=== PATIENT | female | born 1990 ===

== ENCOUNTER 2016-05-27 19:21 | Emergency (ER) | payer MEDICAID, OTHER ==
[2016-05-27 20:43] VITALS: BMI 28.0
[2016-05-27 21:18] LABS: RBC URINE 1 /hpf (0-3); URINE BILIRUBIN NEGATIVE (NEGATIVE); URINE BLOOD NEGATIVE (NEGATIVE); URINE COLOR STRAW (YELLOW); URINE GLUCOSE (UA) NEG (Normal); URINE KETONE NEGATIVE (NEGATIVE); URINE LEUKOCYTE ESTERASE TRACE Leu/uL (Negative); URINE PROTEIN NEGATIVE (NEGATIVE); URINE UROBILINOGEN 0.2-1.0 mg/dL (0.2-1.0); WBC URINE 2 /hpf (0-5)
--- NOTE | 2016-05-27 21:39 | US ---
EXAM: US Uterus CLINICAL HISTORY: 26 years old, female; Signs and symptoms; Lmp or gestational age (in weeks): 12/23/15; Antepartum complications; Other: Pelvic pressure; ; Additional info: Pelvic pressure, pelvic pain TECHNIQUE: Real-time ultrasound of the maternal uterus (limited) with image documentation. COMPARISON: No relevant prior studies available. FINDINGS: Evaluation of the pelvis reveals a single intrauterine with a cephalic presentation. The placenta is fundal and free of the cervical os. The cervix measures 4.2 cm in length and is closed. heart rate measured at 142 bpm. measurements are as follows: BPD: 5.6 cm Head circumference: 20.9 cm Abdominal circumference: 18.0 cm Femur length: 4.3 cm Composite estimated gestational age is 23 weeks 2 days +/-1 week 4 days. Estimated weight is 579 g (1 lb 4 oz). EFW percentile is 88.7 %. Anatomy not evaluated. IMPRESSION: Single IUP as above. Cervix is closed, measured at 4.2 cm.
--- NOTE | 2016-06-01 16:08 | OBHP ---
Datetime: 05/27/2016 22:40 Pelvic Type - PN: Adequate Extremities - PN: Normal Abdomen - PN: Normal Back - PN: Normal Breast - PN: Normal Lungs - PN: Normal Heart - PN: Normal Thyroid - PN: Normal Neurologic - PN: Normal HEENT - PN: Normal General - PN: Normal Genitourinary Exam: Normal DTRs - PN: Normal Datetime: 05/27/2016 20:35 IP Adm Impression: , intrauterine ; No Active Labor IP Admit Plan: Observation/Evaluation Admit Comment, IP Provider: 26 y/o F IU at 22.2w presents due to pelvic pain with pressure and lower back pain since 4pm today. Pain is constant has not change in intensity or quality since starte d. Denies VB, LOF, CTXs, vomiting, nausea or dysuria. PMHx: denies Allegies: NKDA Meds: PNV, Iron OB Hx: 1 C-Sect, 1 NVD. UTI during current at 12weeks SxHx: L/Ovary removal O: See above A: 26 y/o F IUP at 22.2w presents for evaluation of labor P: - monitoring -UA -OB US limited Case discussed with Dr Randi Guerrero PGY1 Addendum: I saw and examined patient presentation. Patient was observed at OB ED. Urinalysis negative. Obste trical ultrasound with cervical length measurement within normal limits. Patient reports feeling bett er and no complaints at this time. Discussed results with patient. Plan to discharge patient. Patient will follow up with care as already scheduled. Randi Presentation-Admit: Vertex FHR - Baseline A Provider: [id number] Comments, ACOG Physical Exam: VE: Closed, thick, high Gestation - Est Wks by US: 22.0 EGA AdmitDate IP: 22.2 Vital Signs Provider: Reviewed; Within Normal Limits IP Chief Complaint: Maternal discomfort NICHD Accel Fetus A IP Provider: [id number] NICHD Decel Fetus A IP Provider: None Dilatation, Provider: closed
== END 2016-05-27 22:45 | disposition home or self-care (01) ==
LOC: H.EROB2 19:21
DX: O47.02 False labor before 37 completed weeks of gestation, second trimester (principal); Z3A.22 22 weeks gestation of pregnancy